=== PATIENT | male | born 1980 ===

== ENCOUNTER 2018-06-08 10:36 | Emergency (ER) | payer SELFPAY ==
[2018-06-08 10:40] VITALS: BMI 32.3
[2018-06-08 10:42] VITALS: BP 105/60; PULSE 90; TEMP 98.1; O2SAT 95
--- NOTE | 2018-06-08 11:28 | C.PDOC ---
History Of Present Illness 38 year old male presents to ED with complaint of pain in the left upper back/ shoulder area that began last night and worsened this morning. Patient works in construction. Patient has taken extensive hot showers and has used heating pads and Tylenol to alleviate the pain with no improvements. He denies any trauma, weakness, and numbness. Time Seen by Provider: 06/08/18 11:02 Chief Complaint (Nursing): Back Pain History Per: Patient History/Exam Limitations: no limitations Onset/Duration Of Symptoms: Days (1) Current Symptoms Are (Timing): Still Present Quality Of Discomfort: "Pain" (pain in left shoulder/upper back) Previous Symptoms: Back Pain (left upper back ), Other (left shoulder pain) Past Medical History Reviewed: Historical Data, Nursing Documentation, Vital Signs Vital Signs: Last Vital Signs Temp 98.1 F 06/08/18 10:40 Pulse 90 06/08/18 10:40 Resp 18 06/08/18 10:40 BP 105/60 06/08/18 10:40 Pulse Ox 95 06/08/18 10:40 - Medical History PMH: No Chronic Diseases Surgical History: No Surg Hx Family History: States: Unknown Family Hx - Social History Hx Alcohol Use: No Hx Substance Use: No - Immunization History Hx Tetanus Toxoid Vaccination: No Hx Influenza Vaccination: No Hx Pneumococcal Vaccination: No Review Of Systems Constitutional: Negative for: Weakness Musculoskeletal: Positive for: Shoulder Pain (left shoulder), Back Pain (left upper back) Neurological: Negative for: Weakness, Numbness Physical Exam - Physical Exam Appears: Well, Non-toxic, No Acute Distress Skin: Normal Color, Warm, Dry Head: Atraumatic, Normacephalic Neck: Supple Chest: Symmetrical, No Deformity Respiratory: No Accessory Muscle Use Back: No Vertebral Tenderness, Muscle Spasm (and tenderness in the left trapezius muscle) Extremity: Normal ROM (of the left upper extremity) Extremity: Bilateral: Atraumatic, Normal Color And Temperature Neurological/Psych: Oriented x3, Normal Speech, Normal Cognition, Normal Motor, Normal Sensation, No Other (left arm neurological symptoms) ED Course And Treatment O2 Sat by Pulse Oximetry: 95 (RA) Progress Note: Motrin PO and ice pack given to patient. Upon reassessment, p atient was resting comfortably, in no distress, and noted improvement of symptoms. Patient is advised to visit PMD within 1-2 days. Patient is advised to return to the ED if symptoms persist or worsen. Reevaluation Time: 12:06 Reassessment Condition: Improved Medical Decision Making Medical Decision Making: L TRAPEZIUS strain/sprain, worse with heat therapies overnight MUCH improved with ED tx Disposition Doctor Will See Patient In The: Office Counseled Patient/Family Regarding: Studies Performed, Diagnosis - Disposition Referrals: [facility] [Outside] Agent P[facility] [Outside] [facility] [Outside] Disposition: HOME/ ROUTINE Disposition Time: 12:06 Condition: GOOD Additional Instructions: sigue HIELO 1/2 hora por hora, nada caliente no orlando geremias caliente por 3 daugherty Ibuprofeno/advil 600 mg cada 6 horas mikayla necessario Sigue con [facility] mikayla necessario. Instructions: Muscle Strain (DC) Forms: Agent Panda (Egyptian) Print Language: BULGARIAN - Clinical Impression Clinical Impression: Strain of trapezius muscle - Scribe Statement The provider has reviewed the documentation as recorded by the Scribe (Molly Linda) Provider Attestation: All medical record entries made by the Scribe were at my direction and personally dictated by me. I have reviewed the chart and agree that the record accurately reflects my personal performance of the history, physical exam, medical decision making, and the department course for this patient. I have also personally directed, reviewed, and agree with the discharge instructions and disposition.
[2018-06-08 12:14] VITALS: RESP 20
== END 2018-06-08 12:14 | disposition home or self-care (01) ==
LOC: C.ER 10:36
DX: S29.012A Strain of muscle and tendon of back wall of thorax, initial encounter (principal); X58.XXXA Exposure to other specified factors, initial encounter